=== PATIENT | male | born 1970 | race Caucasian/White ===

== ENCOUNTER 2023-10-20 13:18 | Emergency (ER) | payer OTHER, SELFPAY ==
[2023-10-20 13:22] VITALS: BP 147/86; PULSE 112; RESP 16; TEMP 36.4; O2SAT 99; BMI 35.4
[2023-10-20 14:04] LABS: Basophils # 0.1 10^3/uL (0.0-0.1); Eosinophils # 0.1 10^3/uL (0.0-0.8); Hematocrit 40.5 % (37-53); Lymphocytes # 1.6 10^3/uL (0.8-4.8); Lymphocytes % 22.3 %; Mean Corpuscular HGB Conc 33.1 g/dL (30-55); Mean Corpuscular Hemoglobin 29.5 pg (27-33); Mean Corpuscular Volume 89.2 fl (82-101); Mean Platelet Volume 8.6 fL (7.4-10.4); Monocytes # 0.4 10^3/uL (0.2-0.9); Monocytes % 4.9 %; Neutrophils # 5.19 10^3/uL (1.8-7.7); Neutrophils % 70.5 %; Nucleated Red Blood Cells % 0 %; Platelet Count 283 10^3/cmm (157-399); Red Blood Count 4.54 10^6/uL (3.85-5.65); Red Cell Distribution Width 12.6 % (12.1-15.1); White Blood Count 7.35 10^3/uL (3.29-11.43)
--- NOTE | 2023-10-20 14:11 | USCV_ITS ---
Simon Emmanuel Age: 53 Gender: M : 1970 Exam Date: 10/20/2023 14:48 Ordering Phys: Nikunj Causey MD Technologist: CT Exam Location: [facility] [place] [place]_ Indication: left le wound, posterior calf PROCEDURES: Venous duplex imaging was performed in only the left lower extremity. On the left side, the common femoral, superficial femoral, profunda femoral, popliteal, posterior tibial, greater saphenous veins, and the peroneal trunk were identified and interrogated in the standard fashion. FINDINGS: Normal 2-D Doppler and augmentation and compressibility throughout the lower extremity venous structures. Additional imaging through the proximal calf veins also reveals no thrombus. Limited evaluation of the lesser saphenous vein, occlusion with superficial thrombophlebitis. CONCLUSIONS No DVT left lower extremity. Acute left lesser saphenous vein thrombophlebitis. Dr. Beverly Nugent DO (Electronically Signed) Final Date: 20 October 2023 15:18 S
[2023-10-20 14:23] LABS: Alanine Aminotransferase 30 U/L (0-41); Albumin Level 3.9 g/dL (3.5-5.2); Alkaline Phosphatase 101 U/L (40-130); Anion Gap 13.1 (5-19); Aspartate Amino Transferase 27 U/L (0-40); Blood Urea Nitrogen 14 mg/dL (6-20); Calcium 9.5 mg/dL (8.5-10.5); Carbon Dioxide 28 mmol/L (22-29); Chloride 100 mmol/L (98-107); Creatinine Clr Calc Pharmacy 202.8959; Glomerular Filtration Rate 118.4 mL/min (90-130); Glucose 124 mg/dL (65-115); Osmolality Calculated 286 mOsm/kg (285-295); Potassium 4.1 mmol/L (3.5-5.1); Sodium 137 mmol/L (136-145); Total Bilirubin 0.4 mg/dL (0.15-1.2); Total Protein 7.9 g/dL (6.6-8.7)
[2023-10-20 14:24] LABS: Lactic Sepsis W/Reflex 2.1 mmol/L (0.5-2.2)
[2023-10-20 14:30] LABS: Procalcitonin 0.07 ng/mL (0-0.5)
--- NOTE | 2023-10-20 15:24 | ED_ITS ---
HPI - Skin/Abscess/Foreign Bdy 2 General: Chief complaint: Skin/Abscess/Foreign Body Stated complaint: Left leg pain/ sent by PCP Venita Anderson Time Seen by Provider: 10/20/23 13:29 History of Present Illness: 53-year-old male presents emergency depa rtment complaints of left lower leg pain. He states he has been recently admitted to [facility] for cellulitis of the left lower leg. He states he is currently taking antibiotics and was seen by his primary care provider today and then sent to the emergency department with concerns that there may be an abscess in his lower left leg. Patient states that he does have significant pain that is a 5 out of 10 to the left lower leg. He does have chronic venous stasis changes to the bilateral lower extremities. Review of Systems 2 General: Reports: 10 or more systems reviewed and unremarkable except in HPI and below Skin/Breast: Reports: erythema, skin pain, skin tenderness, changes in skin color and dry skin Physical Exam 2 Narrative: EXAM NARRATIVE: General: Alert, no acute distress. Skin: Warm, dry, chronic venous stasis changes to the bilateral lower extremities, patient does have a superficial open healing wound to the left anterior strong. Head: Normocephalic, atraumatic. Neck: Supple, trachea midline. Eye: Extraocular movements are intact. PERRLA Ears, nose, mouth and throat: mucosa moist. Cardiovascular: Regular, Normal peripheral perfusion. Respiratory: Lungs are clear to auscultation, respirations are non-labored, breath sounds are equal, Symmetrical chest wall expansion. Gastrointestinal: Soft, Nontender, Non distended, Normal bowel sounds. Musculoskeletal: Normal ROM, no deformity. Tenderness to palpation to the posterior aspect of the left lower leg. Patient does have cellulitis that is present to the left lower extremity. Neurological: Alert and oriented, No focal neurological deficit observed. Psychiatric: Cooperative, appropriate mood & affect. Course 2 Vital Signs: Vital signs: Vital Signs Temperature 97.5 F L 10/20/23 13:22 Pulse Rate 100 10/20/23 16:00 Respiratory Rate 16 10/20/23 13:22 Blood Pressure 147/86 10/20/23 13:22 Pulse Oximetry 98 10/20/23 16:00 Oxygen Delivery Me thod Room Air 10/20/23 13:22 MDM - Skin/Abscess/Foreign Bdy Medicial Decision Making Physical exam completed and documented I did request [facility] recent discharge summary as well as radiographic images. I repeated the CBC and CMP which were essentially unremarkable. Ultrasound of lower extremity did show superficial thrombophlebitis and no abscess. I have encouraged the patient to continue taking his antibiotics and follow-up with his primary care provider as directed. Medical Records I reviewed the patient's medical records. Lab Data I reviewed the patient's lab results. 10/20/23 13:52 10/20/23 13:52 Laboratory Results WBC 7.35 10^3/uL (3.29-11.43) 10/20/23 13:52 RBC 4.54 10^6/uL (3.85-5.65) 10/20/23 13:52 Hgb 13.40 g/dL (11.27-16.99) 10/20/23 13:52 Hct 40.5 % (37-53) 10/20/23 13:52 MCV 89.2 fl (82-101) 10/20/23 13:52 MCH 29.5 pg (27-33) 10/20/23 13:52 MCHC 33.1 g/dL (30-55) 10/20/23 13:52 RDW 12.6 % (12.1-15.1) 10/20/23 13:52 Plt Count 283 10^3/cmm (157-399) 10/20/23 13:52 MPV 8.6 fL (7.4-10.4) 10/20/23 13:52 Neut % (Auto) 70.5 % 10/20/23 13:52 Lymph % (Auto) 22.3 % 10/20/23 13:52 Gordon % (Auto) 4.9 % 10/20/23 13:52 Eos % (Auto) 1.0 % 10/20/23 13:52 Baso % (Auto) 1.0 % 10/20/23 13:52 Neut # (Auto) 5.19 10^3/uL (1.8-7.7) 10/20/23 13:52 Lymph # (Auto) 1.6 10^3/uL (0.8-4.8) 10/20/23 13:52 Gordon # (Auto) 0.4 10^3/uL (0.2-0.9) 10/20/23 13:52 Eos # (Auto) 0.1 10^3/uL (0.0-0.8) 10/20/23 13:52 Baso # (Auto) 0.1 10^3/uL (0.0-0.1) 10/20/23 13:52 Nucleated RBC % (auto) 0 % 10/20/23 13:52 Nucleated RBCs # 0.0 /100WBC 10/20/23 13:52 Sodium 137 mmol/L (136-145) 10/20/23 13:52 Potassium 4.1 mmol/L (3.5-5.1) 10/20/23 13:52 Chloride 100 mmol/L (98-107) 10/20/23 13:52 Carbon Dioxide 28 mmol/L (22-29) 10/20/23 13:52 Anion Gap 13.1 (5-19) 10/20/23 13:52 BUN 14 mg/dL (6-20) 10/20/23 13:52 Creatinine 0.7 mg/dL (0.7-1.2) 10/20/23 13:52 GFR Calculation 118.4 mL/min (90-130) 10/20/23 13:52 Glucose 124 mg/dL (65-115) H 10/20/23 13:52 Calculated Osmolality 286 mOsm/kg (285-295) 10/20/23 13:52 Lactic Acid 2.1 mmol/L (0.5-2.2) 10/20/23 13:52 Calcium 9.5 mg/dL (8.5-10.5) 10/20/23 13:52 Total Bilirubin 0.4 mg/dL (0.15-1.2) 10/20/23 13:52 AST 27 U/L (0-40) 10/20/23 13:52 ALT 30 U/L (0-41) 10/20/23 13:52 Alkaline Phosphatase 101 U/L (40-130) 10/20/23 13:52 Total Protein 7.9 g/dL (6.6-8.7) 10/20/23 13:52 Albumin 3.9 g/dL (3.5-5.2) 10/20/23 13:52 Globulin 4.0 g/dL (1.3-4.6) 10/20/23 13:52 Procalcitonin 0.07 ng/mL (0-0.5) 10/20/23 13:52 All radiology interpretation(s) finalized by discharge Discharge Plan Discharge Patient Disposition: Home Clinical Impression: Superficial thrombophlebitis, Cellulitis Condition: Stable Prescriptions: New mupirocin 2 % ointment 1 applic topical BID Qty: 22 0RF hydrocodone-acetaminophen 5-325 mg tablet 1 tab PO Q8H PRN (Reason: pain) Qty: 14 0RF No Action phentermine 37.5 mg tablet 37.5 mg PO QAM linezolid 600 mg tablet 600 mg PO BID oxycodone 5 mg tablet 5 mg PO Q4H PRN (Reason: Pain) Discharge Orders: Discharge ED (Routine); Ordered 10/20/23 Ordered By: Nikunj Causey Referrals: Ventia Anderson FABRICATION INSPECTOR [Primary Care Provider] - Discharge Diet: Usual diet Discharge Activity: Resume usual activity Patient Instructions: Opioid Safety, Pain Management Activity Restrictions/Additional Instructions: Activity Restrictions/Additional Instructions: Thank you for choosing [facility] for your healthcare needs today. Please realize that you were seen in the Emergency Department and that we are providing you with an emergency medical screening exam and this may not be a complete and all inclusive of all the testing and or medical work-up that you may need to determine your ailment or severity of your illness. It is very important that you follow-up as instructed with your Primary care provider or Specialist for additional evaluation and to discuss your medical treatment plan. Coding Level of Care Code ED [employer] for Jeancarlos Hogan
[2023-10-20 15:47] LABS: Reflex Lactate Order REFLEX LACTIC ORDERD
[2023-10-20 16:00] VITALS: PULSE 100; O2SAT 98
[2023-10-20] MEDS: neomycin-poly-bacitracin oint 0.9 gm Pkt 1 APPLIC TOPICAL (16:02)
== END 2023-10-20 16:01 | disposition home or self-care (01) ==
PROVIDERS: Emergency Provider Internal Medicine; PCP Nurse Practitioner Family
DX: I80.02 Phlebitis and thrombophlebitis of superficial vessels of left lower extremity (principal); L03.116 Cellulitis of left lower limb
CPT/HCPCS: 36415; 80053; 83605; 84145; 85025; 93971; 99284